=== PATIENT | female | born 1955 | race Caucasian/White ===

== ENCOUNTER 2019-03-27 14:35 | Emergency (ER) | payer OTHER | END 2019-03-27 16:17 | disposition home or self-care (01) | LOC: EDH 14:35 | DX: S63.614A Unspecified sprain of right ring finger, initial encounter (principal); Z88.0 Allergy status to penicillin; Z98.890 Other specified postprocedural states; W18.39XA Other fall on same level, initial encounter; Y93.89 Activity, other specified; Y92.89 Other specified places as the place of occurrence of the external cause; Y99.8 Other external cause status | CPT/HCPCS: 73130; 96374 ==